=== PATIENT | female | born 1980 | race African-American/Black ===

== ENCOUNTER 2020-07-21 14:35 | Inpatient (IN) | payer OTHER ==
[2020-07-21] MEDS ORDERED: PROMETHAZINE HCL 25 MG/1 ML VIAL IVPUSH ONE (18:02)
[2020-07-21] MEDS ORDERED: BUTORPHANOL TARTRATE 1 MG/ML VIAL IVPB ONE (18:02)
[2020-07-21] MEDS ORDERED: AMPICILLIN - 2 GM in SODIUM CHLORIDE 100 ML IVPB ONE (18:05)
[2020-07-21 18:37] VITALS: BMI 25.9
[2020-07-21] MEDS: DEXTROSE 5%-LACTATED RINGERS 1,000 ML IV SCH (19:30)
[2020-07-21 20:04] LABS: BASO % 0.7 % (0-2.0); EOS % 1.1 % (0-4.5); HEMATOCRIT 33.6 % (32.4-45.2); HEMOGLOBIN 11.1 GM/dL (10.7-15.3); LYMPH % 17.3 % (8-40); MCH 29.2 pg (25.7-33.7); MCHC 32.9 g/dl (32.0-36.0); MEAN CELL VOLUME 88.7 fl (80-96); MEAN PLT VOLUME 11.3 fl (7.5-11.1); MONO % 8.4 % (3.8-10.2); NEUT % 72.5 % (42.8-82.8); PLATELET COUNT 147 K/MM3 (134-434); RBC 3.79 M/mm3 (3.60-5.2); RDW 14.5 % (11.6-15.6); WHITE BLOOD COUNT 10.1 K/mm3 (4.0-10.0)
[2020-07-21 20:18] LABS: POTASSIUM 3.7 mmol/L (3.5-5.1)
[2020-07-21 20:21] LABS: ALBUMIN 2.6 g/dl (3.4-5.0); BLOOD UREA NITROGEN 4.8 mg/dL (7-18); CALCIUM 8.8 mg/dL (8.5-10.1)
[2020-07-21 20:22] LABS: INR 0.95 (0.83-1.09); PROTHROMBIN TIME (PATIENT) 11.7 SEC (9.7-13.0)
[2020-07-21 20:24] LABS: CREATININE 0.5 mg/dL (0.55-1.3); URIC ACID 4.8 mg/dL (2.6-7.2)
[2020-07-21 20:25] LABS: BILIRUBIN,TOTAL 0.4 mg/dL (0.2-1)
[2020-07-21 20:45] LABS: URINE APPEARANCE CLEAR; URINE BILIRUBIN NEGATIVE (NEGATIVE); URINE COLOR YELLOW; URINE GLUCOSE (UA) NEGATIVE (NEGATIVE); URINE KETONE 2+ (NEGATIVE); URINE LEUK ESTERASE NEGATIVE (NEGATIVE); URINE NITRITE NEGATIVE (NEGATIVE); URINE PROTEIN NEGATIVE (NEGATIVE); URINE UROBILINOGEN 0.2 mg/dL (0.2-1.0)
[2020-07-21 20:59] LABS: COCAINE, UR NEGATIVE ng/ml (CUTOFF=300); METHADONE, UR NEGATIVE ng/ml (CUTOFF=300); OPIATES, URI NEGATIVE ng/ml (CUTOFF=300); URINE BENZODIAZEPINES NEGATIVE ng/ml (CUTOFF=200)
[2020-07-21 21:00] LABS: PHENCYCLIDINE,URINE NEGATIVE ng/ml (CUTOFF=25); URINE BARBITURATES NEGATIVE ng/ml (CUTOFF=200)
[2020-07-21 21:05] LABS: URINE AMPHETAMINES NEGATIVE ng/ml (CUTOFF=500)
[2020-07-21] MEDS ORDERED: AMPICILLIN SODIUM 2 GM VIAL ONE (21:25)
[2020-07-21] MEDS ORDERED: OXYTOCIN 30 UNITS in 0.9% NS 30 UNIT/500 ML INFUS.BAG IVPB SCH (23:00)
[2020-07-21] MEDS ORDERED: BUTORPHANOL TARTRATE 2 MG/ML VIAL ONE (23:20)
[2020-07-21] MEDS ORDERED: OXYTOCIN 30 UNITS in 0.9% NS 30 UNIT/500 ML INFUS.BAG IVPB ONE (23:20)
[2020-07-21] MEDS ORDERED: PROMETHAZINE HCL 25 MG/1 ML VIAL ONE (23:20)
[2020-07-22] MEDS ORDERED: AMPICILLIN SODIUM 1 GM VIAL ONE ×3 (01:29→09:43)
[2020-07-22] MEDS: AMPICILLIN - 1 GM in SODIUM CHLORIDE 100 ML IVPB SCH ×5 (01:30→18:05)
[2020-07-22] MEDS ORDERED: FENTANYL/BUPIVACAINE/NS/PF - PCEA - 50 ML DISP.SYRIN EP ONE ×2 (04:00→08:00)
[2020-07-22] MEDS ORDERED: PCA PUMP NR ONE ×2 (04:00→08:01)
[2020-07-22] MEDS: FENTANYL/BUPIVACAINE/NS/PF - PCEA - 50 ML DISP.SYRIN EP SCH (04:20)
[2020-07-22] MEDS ORDERED: NALOXONE HCL 0.4 MG/ML VIAL IVPUSH PRN (04:48)
[2020-07-22] MEDS: DEXTROSE 5%-LACTATED RINGERS 1,000 ML IV SCH (05:00)
[2020-07-22] MEDS ORDERED: BUPIVACAINE HCL/PF 0.25% (2.5MG/ML) 10 ML VIAL ONE ×2 (07:55→09:55)
[2020-07-22] MEDS: ELECTROLYTE-148 SOLN 1,000 ML IV SCH (09:00)
[2020-07-22] MEDS ORDERED: OXYTOCIN 20 UNITS in 0.9% NS 20 UNIT/1,000 ML INFUS.BAG IV ONE ×3 (09:44→21:13)
[2020-07-22] MEDS ORDERED: LIDOCAINE HCL 1% PRESERVATIVE FREE - 30ML VIAL ONE (09:44)
[2020-07-22] MEDS ORDERED: LIDO 2%/EPI 1:200000 PRESRVFRE (20 ML SDVIAL) ONE (13:20)
[2020-07-22] MEDS: OXYTOCIN 20 UNITS in 0.9% NS 20 UNIT/1,000 ML INFUS.BAG IV SCH ×2 (13:22→21:00)
[2020-07-22] MEDS ORDERED: MISOPROSTOL 200 MCG TABLET PV ONE (13:25)
[2020-07-22 13:57] LABS: CORD HCO3 18.3 mmHg (20-29); CORD PCO2 36.5 mmHg (30-78); CORD pH 7.319 (7.14-7.44)
[2020-07-22 14:00] LABS: CORD BASE EXCESS -9.1 mmol/L (0-2); CORD HCO3 17.6 mmHg (20-29); CORD PCO2 40.8 mmHg (30-78); CORD pH 7.252 (7.14-7.44)
[2020-07-22] MEDS ORDERED: BENZOCAINE 20% 57 GM BOTTLE TP PRN (14:56)
[2020-07-22] MEDS ORDERED: WITCH HAZEL 50% (TUCKS) 40 PAD/JAR PAD TP PRN (14:56)
[2020-07-22] MEDS ORDERED: BISACODYL 10 MG SUPP.RECT RC PRN (14:56)
[2020-07-22] MEDS ORDERED: METHYLERGONOVINE MALEATE 0.2 MG/1 ML AMP IM PRN (14:56)
[2020-07-22] MEDS ORDERED: BENZOCAINE 28 GM HEMORRHOIDAL OINTMENT TP PRN (14:56)
[2020-07-22] MEDS ORDERED: CEFAZOLIN 2 GM/D5W 2 GM/50 ML ML IVPB ONE (15:01)
[2020-07-22] MEDS ORDERED: CEFAZOLIN 2 GM in DEXTROSE 5%-WATER - 50 ML IVPB ONE (15:04)
[2020-07-22] MEDS ORDERED: ACETAMINOPHEN 325 MG TABLET (FP) PO PRN (15:11)
[2020-07-22] MEDS ORDERED: IBUPROFEN 600 MG TABLET (FP) PO ONE ×2 (16:41→20:58)
[2020-07-22] MEDS ORDERED: LABETALOL HCL 100 MG TABLET (FP) PO PRN (17:39)
[2020-07-22] MEDS: FERROUS SO4 325 MG TABLET (FP) PO SCH (18:38)
[2020-07-22 20:34] LABS: BASO % 0.2 % (0-2.0); HEMATOCRIT 33.3 % (32.4-45.2); HEMOGLOBIN 10.8 GM/dL (10.7-15.3); LYMPH % 5.4 % (8-40); MCH 28.4 pg (25.7-33.7); MCHC 32.3 g/dl (32.0-36.0); MEAN CELL VOLUME 87.9 fl (80-96); MEAN PLT VOLUME 12.3 fl (7.5-11.1); MONO % 5.6 % (3.8-10.2); NEUT % 88.8 % (42.8-82.8); PLATELET COUNT 118 K/MM3 (134-434); RBC 3.79 M/mm3 (3.60-5.2); RDW 14.3 % (11.6-15.6); WHITE BLOOD COUNT 26.1 K/mm3 (4.0-10.0)
[2020-07-22] MEDS ORDERED: CEFAZOLIN 1 GM/D5W 1 GM/50 ML BAG ONE (20:58)
[2020-07-22] MEDS: CEFAZOLIN 1 GM/D5W 1 GM/50 ML BAG IVPB SCH (21:00)
[2020-07-22] MEDS: IBUPROFEN 600 MG TABLET (FP) PO PRN (21:10)
[2020-07-22 21:27] LABS: ANISOCYTOSIS 2+; MACROCYTOSIS 0; PLATELET ESTIMATE DECREASED; TARGET CELLS 1+
[2020-07-23] MEDS: ACETAMINOPHEN 1000 MG/100 ML VIAL (NON FORMULARY) IVPB PRN ×2 (00:10→05:49)
[2020-07-23] MEDS: CEFAZOLIN 1 GM/D5W 1 GM/50 ML BAG IVPB SCH ×3 (02:20→17:56)
[2020-07-23] MEDS: AMPICILLIN - 1 GM in SODIUM CHLORIDE 100 ML IVPB SCH (02:20)
[2020-07-23] MEDS: IBUPROFEN 600 MG TABLET (FP) PO PRN (06:31)
[2020-07-23 07:45] LABS: BASO % 0.2 % (0-2.0); HEMATOCRIT 27.1 % (32.4-45.2); HEMOGLOBIN 8.9 GM/dL (10.7-15.3); LYMPH % 9.4 % (8-40); MCH 28.7 pg (25.7-33.7); MCHC 32.9 g/dl (32.0-36.0); MEAN CELL VOLUME 87.1 fl (80-96); MEAN PLT VOLUME 11.9 fl (7.5-11.1); MONO % 6.5 % (3.8-10.2); NEUT % 83.9 % (42.8-82.8); PLATELET COUNT 111 K/MM3 (134-434); RBC 3.11 M/mm3 (3.60-5.2); RDW 14.7 % (11.6-15.6)
[2020-07-23] MEDS: FERROUS SO4 325 MG TABLET (FP) PO SCH ×2 (09:48→18:57)
[2020-07-23] MEDS ORDERED: PROMETHAZINE HCL 25 MG/1 ML VIAL IVPUSH ONE (10:00)
[2020-07-23] MEDS ORDERED: PRENATAL VITAMINS W/ FOLIC ACID TABLET (FP) PO SCH (10:00)
[2020-07-23] MEDS ORDERED: BUTORPHANOL TARTRATE 1 MG/ML VIAL IVPUSH ONE (10:00)
[2020-07-23] MEDS ORDERED: PROMETHAZINE HCL 25 MG/1 ML VIAL ONE (10:02)
[2020-07-23] MEDS ORDERED: BUTORPHANOL TARTRATE 1 MG/ML VIAL ONE ×2 (10:02)
[2020-07-23] MEDS ORDERED: fentaNYL CITRATE 250 MCG/5 ML VIAL ONE ×2 (10:38→12:44)
[2020-07-23] MEDS ORDERED: MIDAZOLAM HCL 2 MG/2 ML SINGLE DOSE VIAL ONE (10:38)
[2020-07-23 10:54] LABS: ANISOCYTOSIS 1+; MACROCYTOSIS 1+; PLATELET ESTIMATE DECREASED
[2020-07-23] MEDS ORDERED: LABETALOL HCL 100 MG TABLET (FP) PO PRN (11:30)
[2020-07-23] MEDS ORDERED: LIDOCAINE HCL 2% (20ML MULTI-DOSE VIAL) ONE (12:08)
[2020-07-23] MEDS ORDERED: LIDO 2%/EPI 1:200000 PRESRVFRE (20 ML SDVIAL) ONE (12:10)
[2020-07-23] MEDS ORDERED: GENTAMICIN 80MG PREMIX BAG IVPB ONE (12:40)
[2020-07-23] MEDS ORDERED: GENTAMICIN SO4 80 MG/2 ML VIAL ONE (12:40)
[2020-07-23] MEDS ORDERED: DEXAMETHASONE SOD PHOSPHATE 4 MG/1 ML VIAL ONE (12:44)
[2020-07-23] MEDS ORDERED: PROPOFOL 20 ML ONE (13:43)
[2020-07-23] MEDS ORDERED: HYDROmorphone *PCA* 10MG/50ML DISP.SYRIN ONE (13:58)
[2020-07-23] MEDS ORDERED: HYDROmorphone *PCA* 10MG/50ML DISP.SYRIN PCA ONE ×2 (14:00)
[2020-07-23] MEDS ORDERED: ONDANSETRON 4 MG/2 ML VIAL IVPUSH PRN ×3 (14:14→14:23)
[2020-07-23] MEDS ORDERED: HYDROmorphone *PCA* 10MG/50ML DISP.SYRIN PCA SCH (14:15)
[2020-07-23] MEDS ORDERED: METHYLERGONOVINE MALEATE 0.2 MG/1 ML AMP IM PRN (14:23)
[2020-07-23] MEDS ORDERED: WITCH HAZEL 50% (TUCKS) 40 PAD/JAR PAD TP PRN (14:23)
[2020-07-23] MEDS ORDERED: ELECTROLYTE-148 SOLN 1,000 ML IV SCH (14:23)
[2020-07-23] MEDS ORDERED: BENZOCAINE 28 GM HEMORRHOIDAL OINTMENT TP PRN (14:23)
[2020-07-23] MEDS ORDERED: BISACODYL 10 MG SUPP.RECT RC PRN (14:23)
[2020-07-23] MEDS ORDERED: OXYTOCIN 30 UNITS in 0.9% NS 30 UNIT/500 ML INFUS.BAG IVPB SCH (14:23)
[2020-07-23] MEDS ORDERED: NALOXONE HCL 0.4 MG/ML VIAL IVPUSH PRN (14:23)
[2020-07-23] MEDS ORDERED: OXYTOCIN 10 UNITS/ML VIAL ONE (14:41)
[2020-07-23] MEDS: OXYTOCIN 20 UNITS in 0.9% NS 20 UNIT/1,000 ML INFUS.BAG IV SCH (15:08)
[2020-07-23] MEDS ORDERED: CEFAZOLIN 1 GM/D5W 1 GM/50 ML BAG IVPB SCH ×2 (18:00)
[2020-07-23] MEDS: LABETALOL HCL 100 MG TABLET (FP) PO PRN (20:16)
[2020-07-23] MEDS ORDERED: SENNOSIDES/DOCUSATE COMBO (SENNA PLUS) TABLET (UD) PO PRN ×2 (22:00)
[2020-07-24] MEDS: CEFAZOLIN 1 GM/D5W 1 GM/50 ML BAG IVPB SCH ×3 (01:21→17:57)
[2020-07-24 08:47] LABS: BASO % 0.5 % (0-2.0); EOS % 0.6 % (0-4.5); HEMATOCRIT 20.9 % (32.4-45.2); LYMPH % 11.7 % (8-40); MCH 29.1 pg (25.7-33.7); MCHC 33.2 g/dl (32.0-36.0); MEAN CELL VOLUME 87.5 fl (80-96); MEAN PLT VOLUME 10.7 fl (7.5-11.1); MONO % 7.8 % (3.8-10.2); NEUT % 79.4 % (42.8-82.8); PLATELET COUNT 126 K/MM3 (134-434); RBC 2.39 M/mm3 (3.60-5.2); RDW 15.4 % (11.6-15.6); WHITE BLOOD COUNT 16.8 K/mm3 (4.0-10.0)
[2020-07-24 08:50] LABS: INR 0.93 (0.83-1.09); PROTHROMBIN TIME (PATIENT) 11.3 SEC (9.7-13.0)
[2020-07-24 08:52] LABS: ACTIVATED PTT 27.2 SECONDS (25.2-36.5)
[2020-07-24 08:57] LABS: HEMOGLOBIN 6.9 GM/dL (10.7-15.3)
[2020-07-24 09:02] LABS: POTASSIUM 3.6 mmol/L (3.5-5.1)
[2020-07-24] MEDS: FERROUS SO4 325 MG TABLET (FP) PO SCH ×2 (09:02→17:57)
[2020-07-24] MEDS: LABETALOL HCL 100 MG TABLET (FP) PO PRN (09:03)
[2020-07-24] MEDS: PRENATAL VITAMINS W/ FOLIC ACID TABLET (FP) PO SCH (09:03)
[2020-07-24] MEDS: BENZOCAINE 20% 57 GM BOTTLE TP PRN (09:03)
[2020-07-24 09:04] LABS: BLOOD UREA NITROGEN 7.8 mg/dL (7-18); CALCIUM 7.8 mg/dL (8.5-10.1)
[2020-07-24] MEDS: ACETAMINOPHEN 325 MG TABLET (FP) PO PRN ×2 (09:04→12:00)
[2020-07-24 09:08] LABS: CREATININE 0.4 mg/dL (0.55-1.3)
[2020-07-24] MEDS: HYDROmorphone *PCA* 10MG/50ML DISP.SYRIN PCA SCH ×2 (13:56→17:56)
[2020-07-24] MEDS: FENTANYL/BUPIVACAINE/NS/PF - PCEA - 50 ML DISP.SYRIN EP SCH ×3 (14:08→23:25)
[2020-07-24] MEDS ORDERED: PCA PUMP KEY 1 EACH EACH ONE (17:13)
[2020-07-24] MEDS: IBUPROFEN 600 MG TABLET (FP) PO PRN (17:58)
[2020-07-24] MEDS: OXYTOCIN 20 UNITS in 0.9% NS 20 UNIT/1,000 ML INFUS.BAG IV SCH (23:20)
[2020-07-24] MEDS: ELECTROLYTE-148 SOLN 1,000 ML IV SCH (23:25)
[2020-07-25] MEDS: ACETAMINOPHEN 325 MG TABLET (FP) PO PRN ×5 (01:10→21:15)
[2020-07-25] MEDS: IBUPROFEN 600 MG TABLET (FP) PO PRN ×5 (01:10→21:14)
[2020-07-25] MEDS: BENZOCAINE 20% 57 GM BOTTLE TP PRN (01:12)
[2020-07-25] MEDS: LABETALOL HCL 100 MG TABLET (FP) PO PRN ×2 (01:13→23:14)
[2020-07-25] MEDS ORDERED: DEXTROSE 5%-LACTATED RINGERS 1,000 ML IV SCH (06:45)
[2020-07-25 08:16] LABS: BASO % 0.5 % (0-2.0); HEMATOCRIT 21.4 % (32.4-45.2); HEMOGLOBIN 7.4 GM/dL (10.7-15.3); LYMPH % 10.1 % (8-40); MCH 29.9 pg (25.7-33.7); MCHC 34.4 g/dl (32.0-36.0); MEAN CELL VOLUME 87.1 fl (80-96); MEAN PLT VOLUME 10.3 fl (7.5-11.1); MONO % 7.8 % (3.8-10.2); NEUT % 80.6 % (42.8-82.8); PLATELET COUNT 139 K/MM3 (134-434); RBC 2.46 M/mm3 (3.60-5.2); WHITE BLOOD COUNT 14.8 K/mm3 (4.0-10.0)
[2020-07-25] MEDS: FERROUS SO4 325 MG TABLET (FP) PO SCH ×2 (10:28→17:57)
[2020-07-25] MEDS: PRENATAL VITAMINS W/ FOLIC ACID TABLET (FP) PO SCH (10:28)
[2020-07-25] MEDS ORDERED: guaiFENesin 200 MG/10 ML 10 ML UNIT-DOSE CUPS PO PRN (16:42)
[2020-07-25] MEDS: VANCOMYCIN 250 MG/5 ML ORAL SOLUTION PO SCH ×2 (17:57→23:14)
[2020-07-26] MEDS: ACETAMINOPHEN 325 MG TABLET (FP) PO PRN ×2 (05:34→22:41)
[2020-07-26] MEDS: IBUPROFEN 600 MG TABLET (FP) PO PRN ×4 (05:34→22:42)
[2020-07-26] MEDS: VANCOMYCIN 250 MG/5 ML ORAL SOLUTION PO SCH ×3 (06:18→18:09)
[2020-07-26 08:11] LABS: BASO % 0.2 % (0-2.0); EOS % 0.9 % (0-4.5); HEMATOCRIT 21.1 % (32.4-45.2); HEMOGLOBIN 7.1 GM/dL (10.7-15.3); LYMPH % 6.9 % (8-40); MCH 29.7 pg (25.7-33.7); MCHC 33.5 g/dl (32.0-36.0); MEAN CELL VOLUME 88.7 fl (80-96); MEAN PLT VOLUME 10.2 fl (7.5-11.1); MONO % 7.8 % (3.8-10.2); NEUT % 84.2 % (42.8-82.8); PLATELET COUNT 212 K/MM3 (134-434); RBC 2.38 M/mm3 (3.60-5.2); RDW 15.4 % (11.6-15.6); WHITE BLOOD COUNT 17.3 K/mm3 (4.0-10.0)
[2020-07-26 08:38] LABS: POTASSIUM 3.4 mmol/L (3.5-5.1)
[2020-07-26 08:41] LABS: CALCIUM 7.7 mg/dL (8.5-10.1)
[2020-07-26 08:42] LABS: ALBUMIN 1.7 g/dl (3.4-5.0); BLOOD UREA NITROGEN 8.6 mg/dL (7-18)
[2020-07-26 08:45] LABS: CREATININE 0.3 mg/dL (0.55-1.3)
[2020-07-26 08:47] LABS: TOT PROT 4.1 g/dl (6.4-8.2)
[2020-07-26] MEDS: FERROUS SO4 325 MG TABLET (FP) PO SCH ×2 (09:06→18:10)
[2020-07-26 09:08] LABS: ANISOCYTOSIS 1+; MACROCYTOSIS 0; PLATELET ESTIMATE NORMAL
[2020-07-26 09:11] LABS: BILIRUBIN,TOTAL 0.4 mg/dL (0.2-1)
[2020-07-26] MEDS: PRENATAL VITAMINS W/ FOLIC ACID TABLET (FP) PO SCH (10:58)
[2020-07-26] MEDS ORDERED: DIPHTH,PERTUSS(ACELL),TET 0.5 ML DISP.SYRIN IM ONE (11:00)
[2020-07-26] MEDS: LACTOBACILLUS ACIDOPHILUS 1 TABLET PO SCH (12:29)
[2020-07-26] MEDS: LABETALOL HCL 100 MG TABLET (FP) PO PRN ×2 (12:37→21:14)
[2020-07-27] MEDS: VANCOMYCIN 250 MG/5 ML ORAL SOLUTION PO SCH ×4 (00:22→17:27)
[2020-07-27] MEDS: LABETALOL HCL 100 MG TABLET (FP) PO PRN (05:15)
[2020-07-27] MEDS: IBUPROFEN 600 MG TABLET (FP) PO PRN (05:16)
[2020-07-27] MEDS: ACETAMINOPHEN 325 MG TABLET (FP) PO PRN ×2 (05:16→12:40)
[2020-07-27 07:44] LABS: BASO % 0.3 % (0-2.0); EOS % 0.6 % (0-4.5); HEMOGLOBIN 6.6 GM/dL (10.7-15.3); LYMPH % 5.6 % (8-40); MCHC 33.1 g/dl (32.0-36.0); MEAN CELL VOLUME 87.6 fl (80-96); MEAN PLT VOLUME 9.4 fl (7.5-11.1); MONO % 8.4 % (3.8-10.2); NEUT % 85.1 % (42.8-82.8); PLATELET COUNT 268 K/MM3 (134-434); RBC 2.28 M/mm3 (3.60-5.2); RDW 15.3 % (11.6-15.6); WHITE BLOOD COUNT 20.2 K/mm3 (4.0-10.0)
[2020-07-27] MEDS: FERROUS SO4 325 MG TABLET (FP) PO SCH ×2 (08:32→18:09)
[2020-07-27 10:45] LABS: INR 1.06 (0.83-1.09)
[2020-07-27 10:48] LABS: ACTIVATED PTT 30.2 SECONDS (25.2-36.5)
[2020-07-27 10:52] LABS: ANISOCYTOSIS 1+; PLATELET ESTIMATE ADEQUATE
[2020-07-27 11:03] LABS: ALBUMIN 1.8 g/dl (3.4-5.0)
[2020-07-27 11:06] LABS: BILIRUBIN,DIRECT 0.2 mg/dL (0.0-0.2)
[2020-07-27 11:07] LABS: TOT PROT 4.8 g/dl (6.4-8.2)
[2020-07-27 11:08] LABS: BILIRUBIN,TOTAL 0.6 mg/dL (0.2-1)
[2020-07-27] MEDS: LACTOBACILLUS ACIDOPHILUS 1 TABLET PO SCH (11:14)
[2020-07-27] MEDS: PRENATAL VITAMINS W/ FOLIC ACID TABLET (FP) PO SCH (11:14)
[2020-07-27] MEDS ORDERED: IRON SUCROSE INJECTION 200 MG in SODIUM CHLORIDE 90 ML IVPB ONE (15:46)
[2020-07-28] MEDS: IBUPROFEN 600 MG TABLET (FP) PO PRN ×2 (00:45→05:13)
[2020-07-28] MEDS: VANCOMYCIN 250 MG/5 ML ORAL SOLUTION PO SCH ×4 (00:45→17:00)
[2020-07-28] MEDS: ACETAMINOPHEN 325 MG TABLET (FP) PO PRN ×2 (00:46→05:13)
[2020-07-28] MEDS: FERROUS SO4 325 MG TABLET (FP) PO SCH ×2 (08:40→17:00)
[2020-07-28 09:30] LABS: BASO % 0.5 % (0-2.0); EOS % 1.1 % (0-4.5); HEMOGLOBIN 7.8 GM/dL (10.7-15.3); LYMPH % 10.4 % (8-40); MCH 30.1 pg (25.7-33.7); MCHC 33.8 g/dl (32.0-36.0); MEAN CELL VOLUME 89.2 fl (80-96); MEAN PLT VOLUME 9.9 fl (7.5-11.1); PLATELET COUNT 347 K/MM3 (134-434); RBC 2.57 M/mm3 (3.60-5.2); RDW 14.9 % (11.6-15.6); WHITE BLOOD COUNT 13.1 K/mm3 (4.0-10.0)
[2020-07-28 10:57] LABS: PLATELET ESTIMATE ADEQUATE; TEAR DROP CELLS 1+
[2020-07-28] MEDS: PRENATAL VITAMINS W/ FOLIC ACID TABLET (FP) PO SCH (11:30)
[2020-07-28] MEDS: LACTOBACILLUS ACIDOPHILUS 1 TABLET PO SCH (11:31)
[2020-07-28] MEDS ORDERED: VANCOMYCIN 250 MG/5 ML ORAL SOLUTION PO SCH (18:00)
[2020-07-28 19:40] VITALS: TEMP 98
[2020-07-28 19:43] VITALS: BP 139/82; PULSE 18
== END 2020-07-28 17:50 | disposition home or self-care (01) | DRG 541 ==
LOC: JDEL 14:35 → JLDR 17:55 → J3W 07-22 22:01
PROVIDERS: ADMIT Obstetrics & Gynecology; ATTEND Obstetrics & Gynecology
PROC: 10D07Z6 Extraction of Products of Conception, Vacuum, Via Natural or Artificial Opening (ICD-10-PCS; principal; 2020-07-22)
PROC: 10907ZC Drainage of Amniotic Fluid, Therapeutic from Products of Conception, Via Natural or Artificial Opening (ICD-10-PCS; 2020-07-22)
PROC: 0U7C7ZZ Dilation of Cervix, Via Natural or Artificial Opening (ICD-10-PCS; 2020-07-22)
PROC: 0W8NXZZ Division of Female Perineum, External Approach (ICD-10-PCS; 2020-07-22)
PROC: 10D17Z9 Manual Extraction of Products of Conception, Retained, Via Natural or Artificial Opening (ICD-10-PCS; 2020-07-22)
PROC: 0U9GXZZ Drainage of Vagina, External Approach (ICD-10-PCS; 2020-07-22)
PROC: 30233N1 Transfusion of Nonautologous Red Blood Cells into Peripheral Vein, Percutaneous Approach (ICD-10-PCS; 2020-07-24)
DX: O63.0 Prolonged first stage (of labor) (principal); O72.1 Other immediate postpartum hemorrhage; O99.324 Drug use complicating childbirth; F12.10 Cannabis abuse, uncomplicated; R82.71 Bacteriuria; O13.5 Gestational [pregnancy-induced] hypertension without significant proteinuria, complicating the puerperium; O99.03 Anemia complicating the puerperium; D62 Acute posthemorrhagic anemia; O69.1XX0 Labor and delivery complicated by cord around neck, with compression, not applicable or unspecified; O75.81 Maternal exhaustion complicating labor and delivery; D72.829 Elevated white blood cell count, unspecified; A04.72 Enterocolitis due to Clostridium difficile, not specified as recurrent; O71.7 Obstetric hematoma of pelvis; Z86.19 Personal history of other infectious and parasitic diseases; Z3A.38 38 weeks gestation of pregnancy; Z37.0 Single live birth
CPT/HCPCS: 36415; 36430; 36600; 59409; 80048; 80053; 80076; 80307; 81003; 82565; 82607; 82728; 82803; 83010; 83540; 83550; 83615; 84156; 84443; 84550; 85025; 85362; 85384; 85610; 85730; 86762; 86780; 86850; 86880; 86900; 86901; 86922; 87040; 87045; 87046; 87070; 87086; 87186; 87205; 87324; 87340; 87449; 88307-TC; 90715; 94760; C9803; J0131; J1756; P9038; P9058; U0003

== ENCOUNTER 2021-05-09 14:18 | Emergency (ER) | payer OTHER ==
[2021-05-09 14:22] VITALS: BP 135/81; PULSE 75; TEMP 98; BMI 20.4
[2021-05-09] MEDS ORDERED: ACETAMINOPHEN 325 MG TABLET (FP) ONE (21:59)
== END 2021-05-09 17:00 | disposition left against medical advice (07) ==
LOC: JER 14:18
DX: B34.9 Viral infection, unspecified (principal)
CPT/HCPCS: 71046-TC-FY; 99284-25; C9803; U0003; U0005

== ENCOUNTER 2021-05-09 19:41 | Emergency (ER) | payer OTHER ==
[2021-05-09] MEDS ORDERED: CASIRIVIMAB/IMDEVIMAB 10 ML in SODIUM CHLORIDE 100 ML IVPB ONE (19:43)
[2021-05-09 19:48] VITALS: BMI 20.4
[2021-05-09 20:00] VITALS: TEMP 99.9
[2021-05-09] MEDS ORDERED: ACETAMINOPHEN 325 MG TABLET (FP) PO ONE (21:54)
[2021-05-09 21:56] VITALS: BP 127/68; PULSE 72
== END 2021-05-09 22:06 | disposition home or self-care (01) ==
LOC: JER 19:41
PROC: 3E033GC Introduction of Other Therapeutic Substance into Peripheral Vein, Percutaneous Approach (ICD-10-PCS; principal; 2021-05-09)
DX: U07.1 COVID-19 (principal)
CPT/HCPCS: 71046-TC-FY; 99284-25; C9803; M0240; Q0240; U0003; U0005

== ENCOUNTER 2023-12-07 01:01 | Emergency (ER) | payer OTHER ==
[2023-12-07 01:12] VITALS: BP 131/79; PULSE 68; RESP 18; TEMP 97.8; BMI 19.1
[2023-12-07] MEDS ORDERED: ACETAMINOPHEN 325 MG TABLET (FP) ONE (01:50)
[2023-12-07] MEDS: ACETAMINOPHEN 325 MG TABLET (FP) PO ONE (02:02)
[2023-12-07 02:10] LABS: EOS % 2.2 % (0-4.5); HEMATOCRIT 35.8 % (32.4-45.2); HEMOGLOBIN 12.1 GM/dL (10.7-15.3); LYMPH % 33.4 % (8-40); MCH 29.3 pg (25.7-33.7); MCHC 33.9 g/dl (32.0-36.0); MEAN CELL VOLUME 86.5 fl (80-96); MEAN PLT VOLUME 9.4 fl (7.5-11.1); MONO % 8.4 % (3.8-10.2); PLATELET COUNT 234 10^3/uL (134-434); RBC 4.13 M/mm3 (3.60-5.2); WHITE BLOOD COUNT 7.9 K/mm3 (4.0-10.0)
[2023-12-07 02:34] LABS: POTASSIUM 3.7 mmol/L (3.5-5.1); THROAT:GRP A STREP NOT DETECTED (NOTDETECTED)
[2023-12-07 02:36] LABS: ALBUMIN 3.4 g/dl (3.4-5.0); BLOOD UREA NITROGEN 10.3 mg/dL (7-18); CALCIUM 9.2 mg/dL (8.5-10.1); MAGNESIUM 2.3 mg/dL (1.8-2.4)
[2023-12-07 02:39] LABS: CREATININE 0.8 mg/dL (0.55-1.3)
[2023-12-07 02:41] LABS: BILIRUBIN,TOTAL 0.1 mg/dL (0.2-1); TOT PROT 6.8 g/dl (6.4-8.2)
== END 2023-12-07 07:05 | disposition left against medical advice (07) ==
LOC: JER 01:01
DX: R09.81 Nasal congestion (principal); R42 Dizziness and giddiness; M54.2 Cervicalgia; R07.89 Other chest pain; J02.9 Acute pharyngitis, unspecified; R50.9 Fever, unspecified; R05.9 Cough, unspecified; Z20.822 Contact with and (suspected) exposure to COVID-19
CPT/HCPCS: 0241U-QW; 36415; 70491-TC; 71275-TC; 80053; 83735; 84484; 84703; 85025; 87651; 93005; 93010; 99285-25